=== PATIENT | female | born 1965 | race Caucasian/White ===

== ENCOUNTER 2018-05-09 01:13 | Observation (INO) ==
[2018-05-09] MEDS ORDERED: *HR* Morphine Immed Rel 30 MG TABLET PO ONE (02:49)
--- NOTE | 2018-05-09 02:52 | Emergency Department Note ---
Disposition Clinical Impression: Proximal humerus fracture Qualifiers: Encounter type: initial encounter Fracture type: closed Fracture morphology: unspecified fracture morphology Laterality: right Qualified Code(s): S42.201A - Unspecified fracture of upper end of right humerus, initial encounter for closed fracture Disposition: Admitted As Inpatient Condition: Good Fall HPI - General Chief Complaint: ED Extremity Injury, Upper Stated Complaint: right shoulder pain Time Seen by Provider: 05/09/18 02:36 Source: patient Mode of arrival: private vehicle Limitations: no limitations Nursing Notes Reviewed: Yes Vital Signs Reviewed: Yes - History of Present Illness HPI Narrative: 52-year-old female presents emergency Department with her after falling down 3 stairs outside. Patient states she was holding a dog leash to a very large lab in her right hand when the dog took off and she fell down 3 stairs landing facedown and flat. She states she had her arms out trying to catch herself as well as hold onto the dog. Patient is complaining of severe right upper arm pain. She denies hitting her head, denies loss of consciousness. Follow-up was witnessed by her . She does say she has an abrasion to her left bruno though she is unconcerned with this as she has full strength and full range of motion to bilateral lower legs. 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: down stairs (#) Fall Witnessed: yes Place Fall Occurred: home Loss of Consciousness: none Prolonged Down Time?: no Symptoms Prior to Fall: none Context: tripped/slipped Location of injury - extremities: Right: shoulder, arm Severity: severe Severity scale (1-10): 10 Quality: sharp, aching Associated symptoms (after fall): Reports: denies - Related Data Home Medications Medication Instructions Recorded Confirmed Abilify 09/22/16 Gabapentin 09/22/16 Inderal 09/22/16 Losartan 09/22/16 Prozac 09/22/16 Previous Rx's Medication Instructions Recorded DiphenhydraMINE [Benadryl] 25 mg PO Q8HR PRN #20 capsule 09/22/16 Meclizine HCl [Verticalm] 25 mg PO TID PRN #30 tablet 10/20/17 Olivier/Poly/HC *EAR* SUSP 3 drop RIGHT EAR QID #10 ml 10/20/17 [Cortisporin *EAR* SUSP] Ondansetron [Zofran ODT] 8 mg SL TID PRN #12 tab.rapdis 10/20/17 GuaiFENesin/Dextromethorphan 5 ml PO Q6HR PRN #120 syrup 01/08/18 [Robitussin/DM] Loratadine [Allergy Relief] 10 mg PO DAILY #30 tablet 01/08/18 Promethazine [Phenergan] 25 mg PO Q6HR PRN #10 tablet 01/08/18 Clotrimazole 2 drop BOTH EARS BID 10 Days #30 ml 04/21/18 Allergies Allergy/AdvReac Type Severity Reaction Status Date / Time cefdinir [From Omnicef] Allergy Hives Verified 05/09/18 01:18 All systems ED: reviewed and negative except as stated. Review of Systems: As Per HPI Fall PMH - Past Medical History Medical history: Reports: hyperlipidemia, hypertension Psychiatric history: Reports: bipolar - Social History Smoking Status: Never smoker Alcohol use: Reports: none Drug use: Reports: none Physical Exam - General Limitations: no limitations General appearance: alert, in distress - Head Head exam: atraumatic, normocephalic, normal inspection - Eye Eye exam: Present: normal appearance, PERRL, EOMI - ENT ENT exam: normal exam, mucous membranes moist - Neck Neck exam: Present: normal inspection, full ROM, trachea midline. Absent: tenderness - Chest Chest inspection: Present: normal inspection, symmetric chest wall rise - Respiratory Respiratory exam: Present: normal lung sounds bilaterally - Cardiovascular Cardiovascular exam: Present: regular rate, normal rhythm, normal heart sounds - Abdominal Exam Abdominal exam: Present: soft, Non-Tender, normal bowel sounds. Absent: tenderness, distention, guarding, rebound, rigidity - Expanded Upper Extremity Exam Shoulder exam: Present: normal inspection, tenderness (With palpation). Absent : full ROM (Due to pain), swelling, abrasion, laceration, ecchymosis, deformity Arm exam: Present: normal inspection, tenderness (With palpation). Absent: full ROM, swelling, abrasion Elbow exam: Present: normal inspection. Absent: full ROM (Limited due to pain) , tenderness Forearm/Wrist exam: Present: normal inspection, full ROM. Absent: tenderness Hand exam: Present: normal inspection, full ROM. Absent: tenderness Neuromotor exam: Normal: wrist extension, thumb opposition, thumb IP flexion, thumb adduction, fingers 2-5 abduction Vascular exam: Normal: capillary refill, radial pulse - Back Exam Back exam: Present: normal inspection, full ROM. Absent: tenderness - Neurological Exam Neurological exam: Present: alert, oriented X3 - Expanded Neurological Exam Patient oriented to: Present: person, place, time Speech: Present: fluid speech Cranial nerves: EOM function (II, III, IV, ): Normal, facial sensation (V): Normal, facial palsy (VII): Normal, gag reflex (IX): Normal, spinal accessory function (XI): Normal, tongue deviation (XII): Normal Cerebellar function: normal gait, Romberg normal Motor strength - LUE: 5/5 Motor strength - RUE: 3/5 Motor strength - LLE: 5/5 Motor strength - RLE: 5/5 Coma Scale Eye Opening: Spontaneous Coma Scale Motor Response: Obeys Commands Coma Scale Verbal Response: Oriented Coma Scale Total: 15 - Psychiatric Psychiatric exam: Present: normal affect, normal mood - Skin Skin exam: Present: warm, dry, intact, normal color Course Course Narrative: Healthy-appearing female who appears in moderate amount distress due to pain. She is alert and oriented 3, neurologically intact. Physical exam reveals right upper extremity pain the point of the shoulder down through the elbow. Patient is unable to move her shoulder due to pain. she does have limited range of motion to right elbow, but states it hurts her upper arm. Full ROM to right wrist, hand, fingers. Patient is neurovascularly intact. Capillary refill is brisk. 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 X-ray reveals no fracture to forearm, a proximal humeral fracture. We will give pain medication in place patient in a sling. - Reevaluation(s) Reevaluation #1: One hour after morphine administration patient is stones to rule out pain. At this time we will start an IV and initiate a pain medication trial to determine if patient will need outpatient or inpatient therapy. We will start with fentanyl, and this is not assist patient with pain medication and we will admit her pain management. Time: 04:04 Reevaluation #2: Patient tolerated fentanyl administration. Concern is pain management when she gets home. and her visit they be more comfortable getting pain management here and seen orthopedics. Patient currently has on board morphine and fentanyl she is finally comfortable and is able to rest. I think it would benefit her to come in under the hospitalist for pain management for this fracture. Patient and are agreeable to plan of care. I spoke to Dr. Saenz who is agreeable to plan of care and his had while on face time with the patient. We will page for hospitalist at this time. Time: 04:32 Reevaluation #3: Spoke with hospitalist regarding care of patient. Patient pain control managed with IV narcotics whereas it was not managed with by mouth narcotics. Patient will be admitted to the hospital with a consult to orthopedics for care. Family agreeable plan of care. Time: 04:54 Vital Signs Temperature 97.6 F 05/09/18 01:15 Pulse Rate 74 05/09/18 01:15 Respiratory Rate 18 05/09/18 01:15 Blood Pressure 113/68 05/09/18 01:15 O2 Sat by Pulse Oximetry 97 05/09/18 01:15 Temperature 97.6 F 05/09/18 01:15 Pulse Rate 74 05/09/18 01:15 Respiratory Rate 18 05/09/18 05:38 Blood Pressure 110/74 05/09/18 05:38 O2 Sat by Pulse Oximetry 97 05/09/18 01:15 Oxygen Delivery Oxygen Delivery Room Air Fall - Radiology Data Radiology results reviewed: Yes I reviewed the patient's radiology results. Humerus X-Ray 05/09/18 01:18 IMPRESSION: Acute fracture of the proximal humerus. D/ / Marcellus Wei MD / Marcellus Wei MD Interpreting Provider: Marcellus Wei MD Shoulder X-Ray 05/09/18 01:18 IMPRESSION: Acute fracture of the proximal humerus. D/ / Marcellus Wei MD / Marcellus Wei MD Interpreting Provider: Marcellus Wei MD Forearm X-Ray 05/09/18 01:19 IMPRESSION: Negative exam. D/ / Marcellus Wei MD / Marcellus Wei MD Interpreting Provider: Marcellus Wei MD
[2018-05-09] MEDS ORDERED: *HR* FentaNYL (PF) 100 MCG/2 ML VIAL IVP ONE ×2 (03:25→09:30)
--- NOTE | 2018-05-09 04:42 | Emergency Department Note ---
Disposition Clinical Impression: Proximal humerus fracture Qualifiers: Encounter type: initial encounter Fracture type: closed Fracture morphology: other fracture Fracture alignment: displaced Laterality: right Qualified Code(s) : S42.291A - Other displaced fracture of upper end of right humerus, initial encounter for closed fracture Disposition: Still a Patient Referrals: Raul Villalba MD [Primary Care Provider] - Forms: ED Satisfaction Letter General Adult HPI - General Chief complaint: ED Extremity Injury, Upper Stated complaint: right shoulder pain Time Seen by Provider: 05/09/18 02:36 Source: patient Mode of arrival: private vehicle Limitations: no limitations - History of Present Illness Pain Scale: 10 - Related Data Home Medications Medication Instructions Recorded Confirmed Abilify 09/22/16 Gabapentin 09/22/16 Inderal 09/22/16 Losartan 09/22/16 Prozac 09/22/16 Previous Rx's Medication Instructions Recorded DiphenhydraMINE [Benadryl] 25 mg PO Q8HR PRN #20 capsule 09/22/16 Meclizine HCl [Verticalm] 25 mg PO TID PRN #30 tablet 10/20/17 Olivier/Poly/HC *EAR* SUSP 3 drop RIGHT EAR QID #10 ml 10/20/17 [Cortisporin *EAR* SUSP] Ondansetron [Zofran ODT] 8 mg SL TID PRN #12 tab.rapdis 10/20/17 GuaiFENesin/Dextromethorphan 5 ml PO Q6HR PRN #120 syrup 01/08/18 [Robitussin/DM] Loratadine [Allergy Relief] 10 mg PO DAILY #30 tablet 01/08/18 Promethazine [Phenergan] 25 mg PO Q6HR PRN #10 tablet 01/08/18 Clotrimazole 2 drop BOTH EARS BID 10 Days #30 ml 04/21/18 Allergies Allergy/AdvReac Type Severity Reaction Status Date / Time cefdinir [From Omnicef] Allergy Hives Verified 05/09/18 01:18 Past Medical History - Past Medical History Medical history: Reports: hyperlipidemia, hypertension Psychiatric history: Reports: bipolar - Social History Smoking Status: Never smoker Smokeless Tobacco Status: No Alcohol use: Reports: none Drug use: Reports: none Physical Exam - General Limitations: no limitations General appearance: alert, in distress Course - Reevaluation(s) Reevaluation #1: Attestation note I examined this patient and my medical decision-making was reviewed with the emergency medicine resident. I agree with the documented findings, disposition and treatment plan as described except to the extent set forth below. Patient seen with emergency medicine resident Dr. Paco Harp, Please see a copy of his note for details of the H&P, ED evaluation, management and disposition. I have independently evaluated the patient and confirmed appropriate portions of the history and physical exam. Briefly: 52-year-old female mechanical slip fall down steps proximal right humeral fracture. Pain control was obtained only through parenteral narcotics patient wishes to be admitted because she started about pain management at home. Admission disposition pending. Time: 04:41 Vital Signs Temperature 97.6 F 05/09/18 01:15 Pulse Rate 74 05/09/18 01:15 Respiratory Rate 18 05/09/18 01:15 Blood Pressure 113/68 05/09/18 01:15 O2 Sat by Pulse Oximetry 97 05/09/18 01:15 Temperature 97.6 F 05/09/18 01:15 Pulse Rate 74 05/09/18 01:15 Respiratory Rate 18 05/09/18 01:15 Blood Pressure 113/68 05/09/18 01:15 O2 Sat by Pulse Oximetry 97 05/09/18 01:15 Oxygen Delivery Oxygen Delivery Room Air
[2018-05-09] MEDS ORDERED: Acetaminophen 325 MG TABLET PO PRN (07:40)
[2018-05-09] MEDS ORDERED: Ondansetron 4 MG/2 ML VIAL IVP PRN (07:40)
[2018-05-09] MEDS ORDERED: *HR* HYDROcodone/Acet 5/325 mg TABLET PO PRN (07:40)
[2018-05-09] MEDS ORDERED: Naloxone 0.4 MG/ML INJ IVP PRN (07:40)
[2018-05-09] MEDS ORDERED: Losartan/HCTZ 50-12.5 TABLET PO SCH (12:00)
--- NOTE | 2018-05-09 12:30 | Internal Med History&Physical ---
Date of Encounter: 05/09/18 Time of Encounter: 09:00 Internal Medicine - H&P: HPI Chief complaint: R arm pain Admitted From: Home Plans for Post Hospital Care: Home History of present illness: Ms. Lazar is a 52 year old female past medical history of hyperlipidemia hypertension anxiety and bipolar. Patient was walking down 3 stairs to exit into the outside she was accordingly suffered old when it all began to run and she fell down 3 stairs landing base-down. She did put her arms out to try stop from falling. She began to experience severe right upper arm pain after the fall. She denied any loss of consciousness or striking her head. She presented to the ER with the above complaints radiology reports did reveal acute fracture of the proximal humerus. Patient was given pain medication and her arm was placed in a sling she was to be discharged from the ER however patient continued to experience uncontrollable pain she and her felt more comfortable having pain managed within the hospital and following with orthopedics here. Patient was admitted for further evaluation and workup. Currently patient does complain of right arm pain her arm is in a sling elevated on one pillow. She has brisk capillary refill denies any numbness or tingling currently rating her pain 10 out of 10. Advised patient she will be medicated with IV medication as well as oral. We will consult orthopedics. Patient verbalized understanding and acceptance of treatment plan. She is hemodynamically stable at this time. Past Med Surg Social Fam HX - Past Medical History Medical history: hyperlipidemia, hypertension Psychiatric history: bipolar - Social History Smoking Status: Never smoker Smokeless Tobacco Status: No Alcohol use: none Drug use: none - Family History Mother Living Status: Still Living Hx Family Cardiac Disorders: Yes (Stroke) Internal Medicine - H&P: Meds Alprazolam [Xanax] 2 mg PO TID PRN 05/09/18 [History] Aripiprazole [Abilify] 15 mg PO DAILY 05/09/18 [History] Ergocalciferol (VITAMIN D2) [Vitamin D2] 50,000 unit PO QWEEK 05/09/18 [History] FLUoxetine HCl [Fluoxetine HCl] 80 mg PO QAM 05/09/18 [History] Gabapentin [Neurontin] 1,600 mg PO BID 05/09/18 [History] Losartan/Hydrochlorothiazide [Losartan-Hctz 50-12.5 mg Tab] 1 tab PO DAILY 05/09 [History] Omeprazole [PriLOSEC] 20 mg PO DAILY 05/09/18 [History] Propranolol [Inderal] 20 mg PO BID 05/09/18 [History] Rosuvastatin Calcium [Rosuvastatin Calcium] 20 mg PO HS 05/09/18 [History] 3 Allergy/AdvReac Type Severity Reaction Status Date / Time cefdinir [From Omnicef] Allergy Hives Verified 05/09/18 01:18 All Systems PM: A 10-system review of systems was performed and is negative for pertinent findings except as documented above in the HPI. - Constitutional Constitutional: no chills, no fever(s), no night sweats - EENT Eyes: no change in vision, no discharge, no pain, no photophobia - Cardiovascular Cardiovascular ROS IM: no chest pain, no diaphoresis, no dyspnea, no lightheadedness, no palpitations, no syncope - Respiratory Respiratory: no cough, no dyspnea, no wheezing, no excessive phlegm production - Gastrointestinal Gastrointestinal: no abdominal pain, no diarrhea, no hematemesis, no hematochezia, no melena, no nausea, no vomiting - Genitourinary Genitourinary: no change in urinary stream, no dysuria, no flank pain, no hematuria - Musculoskeletal Musculoskeletal ROS IM: limited range of motion, myalgias, no numbness, no tingling - Integumentary Integumentary IM: no rash, no unusual bruising - Neurological Neurological ROS: no confusion, no convulsions, no focal weakness, no numbness, no tingling, no tremor(s) - Hematologic/Lymphatic Hematologic/Lymphatic: no easy bruising - Constitutional Vitals: Temp Pulse Resp BP Pulse Ox 98.6 F 65 16 94/61 95 05/09/18 11:42 05/09/18 11:42 05/09/18 11:42 05/09/18 11:42 05/09/18 11:42 General appearance: Present: A&O X 3 - Head Head exam: Present: atraumatic, normocephalic - Eye Eye exam: Present: PERRL, conjuntiva pink, sclera anicteric Pupils: Present: PERRL - Neck Neck exam general surgery: Present: supple, trachea midline. Absent: lymphadenopathy - Respiratory Respiratory exam: Present: CTAB. Absent: accessory muscle use, rales, rhonchi, wheezes - Cardiovascular Cardiovascular exam: Present: RRR, +S1, +S2. Absent: diastolic murmur, gallop, rubs, systolic murmur - GI/Abdominal GI/Abdominal exam: Present: normal bowel sounds, soft, no peritoneal signs. Absent: distended, tenderness - Extremities Exam Extremities exam: Present: warm, radial pulses palpable and symmetrical. Absent : calf tenderness, cyanotic, pedal edema - Neurological Exam Neurological exam: Present: CN II-XII intact, oriented X3, no focal deficits. Absent: pronater drift, facial droop, speech deficit - Skin Skin exam: Present: dry, intact - Time Spent With Patient Total time spent is greater than 50% in coordination of care (as documented) at patient's floor/unit and/or counseling patient:
[2018-05-09] MEDS: FLUoxetine 20 MG CAPSULE PO SCH (13:10)
[2018-05-09] MEDS: ALPRAZolam 1 MG TABLET PO PRN (13:12)
[2018-05-09] MEDS: ARIPiprazole 10 MG TABLET PO SCH (13:12)
[2018-05-09] MEDS: *HR* OxyCODONE Immed Rel 5 MG TABLET PO PRN ×2 (15:47→22:25)
[2018-05-09] MEDS: Gabapentin 400 MG CAPSULE PO SCH (20:59)
--- NOTE | 2018-05-09 22:19 | Orthopedic Consult Note ---
Date of Encounter: 05/09/18 Time of Encounter: 21:00 Assessment and Plan (1) Proximal humerus fracture Current Visit: Yes Status: Acute I did discuss the diagnosis in detail with the patient. She has a right proximal humerus fracture. Treatment options were discussed and my recommendation was for nonoperative management initially. Pendulum swings to the right upper extremity when tolerated. No pushing, pulling, or lifting with the right upper extremity. Sling for comfort. We will x-ray us again in 1 week in the office to evaluate for displacement. Should this displace she may require operative intervention. She is orthopedic was stable for discharge. Follow-up in the office in 1 week for a clinical and radiographic reevaluation or sooner if needed. Qualifiers: Encounter type: initial encounter Fracture type: closed Fracture morphology: unspecified fracture morphology Laterality: right Qualified Code (s): S42.201A - Unspecified fracture of upper end of right humerus, initial encounter for closed fracture History of Present Illness HPI: Ms. Lazar is a 52 year old female. She is currently admitted to the hospitalist. She had a fall which resulted in a right proximal humerus fracture. I was asked to assist in the evaluation and management of this patient. She complains of this was an isolated injury. She denies any headaches, neck pain, chest pain, abdominal pain, left upper extremity pain and bilateral lower extremity pain. Symptoms of the right shoulder include achy pain worse with movement and use and better with rest. No other associated signs or symptoms or modifying factors. Past Med Surg Social Fam HX - Past Medical History Medical history: hyperlipidemia, hypertension Psychiatric history: bipolar - Social History Smoking Status: Never smoker Smokeless Tobacco Status: No Alcohol use: none Drug use: none - Family History Mother Living Status: Still Living Hx Family Cardiac Disorders: Yes (Stroke) Medications and Allergies Alprazolam [Xanax] 2 mg PO TID PRN 05/09/18 [History] Aripiprazole [Abilify] 15 mg PO DAILY 05/09/18 [History] Ergocalciferol (VITAMIN D2) [Vitamin D2] 50,000 unit PO QWEEK 05/09/18 [History] FLUoxetine HCl [Fluoxetine HCl] 80 mg PO QAM 05/09/18 [History] Gabapentin [Neurontin] 1,600 mg PO BID 05/09/18 [History] Losartan/Hydrochlorothiazide [Losartan-Hctz 50-12.5 mg Tab] 1 tab PO DAILY 05/09 [History] Omeprazole [PriLOSEC] 20 mg PO DAILY 05/09/18 [History] Propranolol [Inderal] 20 mg PO BID 05/09/18 [History] Rosuvastatin Calcium [Rosuvastatin Calcium] 20 mg PO HS 05/09/18 [History] 3 Allergy/AdvReac Type Severity Reaction Status Date / Time cefdinir [From Omnicef] Allergy Hives Verified 05/09/18 01:18 All Systems Reviewed: Constitutional and musculoskeletal systems were reviewed and are negative unless otherwise stated in history of present illness. Physical Exam - Constitutional Vitals: Temp Pulse Resp BP Pulse Ox 98.4 F 72 15 106/72 92 05/09/18 18:54 05/09/18 22:10 05/09/18 18:54 05/09/18 22:10 05/09/18 18:54 Constitutional -Vitals reviewed -The patient is well developed and well nourished. -Mood is pleasant. -The patient is well groomed. Psychiatric -The patient is fully alert and oriented x 3. Respiratory: -Respiratory effort normal Abdomen: -Soft abdomen -Non tender -Non distended: Left upper extremity: -No deformities. The overlying skin is intact. No obvious signs of acute trauma. -No tenderness to palpation throughout. -No significant pain with passive motion of the shoulder, elbow, wrist, and fingers within the limits of the bed. -Able to make an "OK" sign, cross the index and long fingers, and extend the thumb. -Sensation grossly intact to light touch throughout the median, radial, and ulnar distributions. -Radial pulse is present; Fingers have good capillary refill. Right upper extremity: -No deformities. The overlying skin is intact. Mild swelling over the anterior shoulder region with tenderness. -No tenderness about the elbow, forearm, wrist, and digits. -Significant pain with any passive motion of the right shoulder. -No significant pain with passive motion of the wrist, and fingers within the limits of the bed. -Able to make an "OK" sign, cross the index and long fingers, and extend the thumb. -Sensation grossly intact to light touch throughout the median, radial, and ulnar distributions. -Radial pulse is present; Fingers have good capillary refill. Left lower extremity: -No deformities. The overlying skin is intact. No obvious signs of acute trauma. -No tenderness to palpation throughout. -No pain with passive motion of the hip, knee, ankle, and toes within the limits of the bed. -No pain with axial loading of the thigh. -Able to dorsiflex and plantarflex the ankle and toes. -Sensation is grossly intact to light touch throughout the sural, saphenous, superficial peroneal, and deep peroneal distributions. -Toes have good capillary refill. Right lower extremity: -No deformities. The overlying skin is intact. No obvious signs of acute trauma. -No tenderness to palpation throughout. -No pain with passive motion of the hip, knee, ankle, and toes within the limits of the bed. -No pain with axial loading of the thigh. -Able to dorsiflex and plantarflex the ankle and toes. -Sensation is grossly intact to light touch throughout the sural, saphenous, superficial peroneal, and deep peroneal distributions. -Toes have good capillary refill. Diagnostic Imaging: I did personally review and interpret x-rays of the right shoulder, humerus, and forearm which show a valgus impacted proximal humerus fracture with nondisplaced greater tuberosity. Results - Labs Labs: All other labs normal. Consult Discharge Plan - Plan Referrals: Raul Villalba MD [Primary Care Provider] -
[2018-05-10] MEDS ORDERED: Ondansetron 4 MG/2 ML VIAL IVP PRN (04:53)
[2018-05-10] MEDS ORDERED: Ondansetron 4 MG/2 ML VIAL ONE (04:58)
[2018-05-10] MEDS: *HR* OxyCODONE Immed Rel 5 MG TABLET PO PRN (05:00)
[2018-05-10 07:36] VITALS: BP 93/62
[2018-05-10] MEDS: ARIPiprazole 10 MG TABLET PO SCH (07:40)
[2018-05-10] MEDS: Gabapentin 400 MG CAPSULE PO SCH (07:40)
[2018-05-10] MEDS: FLUoxetine 20 MG CAPSULE PO SCH (07:42)
[2018-05-10] MEDS: ALPRAZolam 1 MG TABLET PO PRN (07:53)
[2018-05-10 07:54] LABS: Basophils # 0.1 K/mcL (0.0-0.2); Basophils % 1.2 %; Eosinophils # 0.2 K/mcL (0.0-0.6); Eosinophils % 2.8 %; Hematocrit 40.6 % (35.3-44.9); Hemoglobin 14.2 g/dL (11.5-15.4); Immature Granulocytes % 0.9 % (0-4); Lymphocytes # 2.5 K/mcL (0.6-4.6); Lymphocytes % 32.8 %; Mean Corpuscular Hemoglobin 31.8 pg (28.0-33.3); Mean Platelet Volume 10.2 fL (9.4-12.4); Monocytes # 0.7 K/mcL (0.0-1.3); Monocytes % 8.7 %; Platelet Count 201 K/mcL (140-400); Red Blood Count 4.46 M/mcL (3.82-4.97); Red Cell Distribution Width 11.9 % (11.5-14.5); Segmented Neutrophils % 53.6 %
[2018-05-10 08:23] LABS: Chloride 107 mEq/L (98-107); Potassium 3.8 mEq/L (3.5-5.1); Sodium 140 mEq/L (136-145)
--- NOTE | 2018-05-10 08:33 | Discharge Summary ---
- NOTES TO OUTPATIENT PROVIDER Notes to Outpatient Provider: Follow up with PCP in 2-3 days after discharge. Recheck blood pressure at that time, and adjust anti-hypertensives as necessary. Follow up with orthopedics in 1 week. Orders not resulted at time of discharge: Pending orders 05/10/18 07:14 Basic Metabolic Panel AM 0400 Date of Encounter: 05/10/18 Time of Encounter: 08:30 - Discharge Diagnosis (1) Proximal humerus fracture Priority: Primary Status: Acute Qualifiers: Encounter type: initial encounter Fracture type: closed Fracture morphology: unspecified fracture morphology Laterality: right Qualified Code (s): S42.201A - Unspecified fracture of upper end of right humerus, initial encounter for closed fracture (2) HTN (hypertension) Priority: Secondary Status: Chronic Qualifiers: Hypertension type: essential hypertension Qualified Code(s): I10 - Essential (primary) hypertension (3) HLD (hyperlipidemia) Priority: Secondary Status: Chronic Qualifiers: Hyperlipidemia type: mixed hyperlipidemia Qualified Code(s): E78.2 - Mixed hyperlipidemia (4) Anxiety Priority: Secondary Status: Chronic Hospital course: Ms. Lazar is a 52 year old female admitted for right closed proximal humerus fracture. Patient was admitted for observation to general medical floor. Orthopedic surgery was consulted. Pain was controlled with tylenol, norco, and oxycodone. Right arm was placed in swing. Non-operative management was recommended by orthopedic surgery. This morning, pain is controlled. She is agreeable to going home with pain control. She will follow up with PCP in 2-3 days after discharge. She will follow up with orthopedics in 1 week. Repeat x- ray will be performed at that time. Patient has met maximum benefit of this hospitalization and will be discharged home in stable condition. Discharge discussed with: patient, nurse - Time Spent with Patient Total time spent providing and/or coordinating discharge services: Less than 30 minutes - Discharge Medications Prescriptions: HYDROcodone/Acet 5/325 mg [[place] 5-325 mg] 1 tab PO Q6HR PRN 5 Days #20 tablet PRN Reason: Severe Pain Home Medications: Alprazolam [Xanax] 2 mg PO TID PRN 05/09/18 [History] Aripiprazole [Abilify] 15 mg PO DAILY 05/09/18 [History] Ergocalciferol (VITAMIN D2) [Vitamin D2] 50,000 unit PO QWEEK 05/09/18 [History] FLUoxetine HCl [Fluoxetine HCl] 80 mg PO QAM 05/09/18 [History] Gabapentin [Neurontin] 1,600 mg PO BID 05/09/18 [History] Losartan/Hydrochlorothiazide [Losartan-Hctz 50-12.5 mg Tab] 1 tab PO DAILY 05/09 [History] Omeprazole [PriLOSEC] 20 mg PO DAILY 05/09/18 [History] Propranolol [Inderal] 20 mg PO BID 05/09/18 [History] Rosuvastatin Calcium 20 mg PO HS 05/09/18 [History] Acetaminophen [Tylenol] 650 mg PO Q6HR PRN tablet 05/10/18 [Rx] HYDROcodone/Acet 5/325 mg [[place] 5-325 mg] 1 tab PO Q6HR PRN 5 Days #20 tablet 05/10/18 [Rx] Allergies/Adverse Reactions: 3 Allergy/AdvReac Type Severity Reaction Status Date / Time No Known Allergies Allergy Verified 05/10/18 05:07 Date of admission: 05/09/18 05:19 Primary care physician: Raul Villalba MD Consults: 05/09/18 09:34 Consult to Orthopedic Surgery [CONS] Routine Consulting Provider: [facility] Reason for Consult: R proximal humerus Time Notified: 09:42 Call Completed: Yes Discharging clinician: Papo Brock Anticipated date of discharge: 05/10/18 - Constitutional Vitals: Temp Pulse Resp BP Pulse Ox 98.2 F 76 14 93/62 97 05/10/18 07:34 05/10/18 07:34 05/10/18 07:34 05/10/18 07:34 05/10/18 07:34 General appearance: Present: cooperative, A&O X 3, pleasant, no acute distress, answers questions appropriately - Respiratory Respiratory exam: Present: CTAB. Absent: accessory muscle use, rales, rhonchi, wheezes Additional comments: Normal WOB - Cardiovascular Cardiovascular exam: Present: RRR, +S1, +S2. Absent: diastolic murmur, gallop, rubs, systolic murmur Additional comments: No BLE edema - GI/Abdominal GI/Abdominal exam: Present: normal bowel sounds, soft. Absent: distended, hepatomegaly, mass, splenomegaly, tenderness - Extremities Exam Additional comments: Right arm in sling, decreased ROM of RUE due to pain - Psychiatric Psychiatric exam: Present: normal affect, normal mood. Absent: agitated, anxious, depressed - Skin Skin exam: Present: dry, intact, warm. Absent: cyanosis, rash - Patient Status Disposition: Home, Self-Care Condition: Good Functional capacity at discharge: independent ambulation Overall status at discharge: patient is progressing back to baseline - Discharge Instructions Follow Up With: Raul Villalba MD [Primary Care Provider] - Additional Instructions: Follow up with PCP in 2-3 days after discharge. Recheck blood pressure at that time, and adjust anti-hypertensives as necessary. Follow up with orthopedics in 1 week. - Diet and Activity Activity: resume usual activities as tolerated Diet: low fat, low cholesterol, low salt diet - VTE Reasons for not Prescribing Prophylaxis: Treatment not Indicated - Low risk for VTE Documentation of Mechanical Device: Intermittent pneumatic compression device
[2018-05-10 08:44] LABS: BUN/Creatinine Ratio 13 (6-26); Blood Urea Nitrogen 10 mg/dL (6-20); Carbon Dioxide 25 mEq/L (23-29); Glucose 100 mg/dL (70-105); Osmolality,Calculated 289 (280-300); eGFR For African Americans > 60 (> 60); eGFR For Non-African Americans > 60 (> 60)
== END 2018-05-10 09:31 | disposition home or self-care (01) ==
LOC: EMEROO 01:13 → 3BNU 01:13
PROVIDERS: ADMIT Internal Medicine; ATTEND Internal Medicine